=== PATIENT | male | born 1950 | race Caucasian/White ===

== ENCOUNTER 2023-07-03 11:50 | Outpatient (CLI) | payer OTHER ==
[2023-07-03 12:56] LABS: FREE T4 (FREE THYROXINE) 1.04 NG/DL (0.73-1.40); THYROID STIMULATING HORMONE 1.75 ulU/ml (0.34-4.50)
== END 2023-07-03 23:59 | disposition home or self-care (01) ==
LOC: CARD DIAG 11:50
PROVIDERS: ATTEND Chiropractor
DX: I08.8 Other rheumatic multiple valve diseases (principal); I25.10 Atherosclerotic heart disease of native coronary artery without angina pectoris; E03.9 Hypothyroidism, unspecified
CPT/HCPCS: 36415; 84439; 84443; 84481; 93306